=== PATIENT | male | born 1950 | race Caucasian/White ===

== ENCOUNTER 2019-09-21 13:14 | Emergency (ER) | payer OTHER ==
--- NOTE | 2019-09-21 13:21 | EDM.PDOC ---
ED HPI GENERAL MEDICAL PROBLEM - General Chief Complaint: General Stated Complaint: Nosebleed Time Seen by Provider: 09/21/19 13:15 Source of Information: Reports: Patient, Old Records ([facility] EMR. No paper hospital chart available.) History Limitations: Reports: No Limitations - History of Present Illness INITIAL COMMENTS - FREE TEXT/NARRATIVE: Patient was brought to the emergency room via private automobile by a friend for evaluation of a three-day history of intermittent bilateral epistaxis, right greater than left. He denies any recent injury with symptoms refractory to nasal pressure and packing at home. Patient did have a similar episode on . He woke up this morning at about 8 AM with significant right-sided epistaxis at that time. The patient also denies any recent fever, wheezing, dyspnea, etc., however stable chronic nonproductive cough secondary to his COPD and tobacco use. No recent history of abdominal pain, heartburn, nausea, diarrhea, melena, gross hematochezia, or any food intolerance, including fatty foods, etc.. The patient denies any chest pain/pressure, heart flutter, dizziness, orthostasis, orthopnea, diaphoresis, paresthesias, recent decreased exercise tolerance, or any other anginal-type symptoms. No history of recent headaches, visual changes, diplopia, change in mental status, or other change in neurological status. He denies any specific pain or discomfort. Onset: Gradual, Other (As above) Onset Date: 09/21/19 Onset Time: 08:00 Duration: Getting Worse, Intermittent Location: Reports: Other (No pain but epistaxis as above) Quality: Reports: Same as Previous Episode Severity: Moderate Improves with: Reports: None Worsens with: Reports: None Context: Reports: Other (As above). Denies: Sick Contact, Trauma Associated Symptoms: Reports: Cough (Stable chronic). Denies: Confusion, Chest Pain, cough w sputum, Diaphoresis, Fever/Chills, Headaches, Loss of Appetite, Malaise, Nausea/Vomiting, Seizure, Shortness of Breath, Syncope, Weakness Treatments ANCILLARY SERVICES MANAGER: Reports: Other (see below) (None) - Related Data Allergies Allergy/AdvReac Type Severity Reaction Status Date / Time No Known Allergies Allergy Verified 09/21/19 13:21 Home Meds: Home Meds Cholecalciferol (Vitamin D3) [Vitamin D3] 0 mcg PO DAILY 09/21/19 [History] Gabapentin [Neurontin] 1,200 mg PO TID 09/21/19 [History] Potassium Chloride 20 meq PO TID 09/21/19 [History] Vitamin B Complex [B Complex] 1 each PO DAILY 09/21/19 [History] amLODIPine [Norvasc] 0 mg PO DAILY 09/21/19 [History] hydroCHLOROthiazide [Hydrochlorothiazide] 0 tab PO DAILY 09/21/19 [History] Past Medical History HEENT History: Reports: Impaired Vision, Other (See Below). Denies: Allergic Rhinitis, Hard of Hearing Other HEENT History: Patient wears glasses. Cardiovascular History: Reports: Hypertension. Denies: Aneurysm, Arrhythmia, Blood Clots/VTE/DVT, CAD, Heart Murmur, High Cholesterol, OR Respiratory History: Reports: Bronchitis, Recurrent, COPD. Denies: PE, Pneumonia, Recurrent, Sleep Apnea Gastrointestinal History: Reports: None Musculoskeletal History: Reports: Arthritis, Osteoarthritis Neurological History: Reports: Neuropathy, Peripheral Psychiatric History: Reports: Addiction, Other (See Below) Other Psychiatric History: Tobacco and alcohol use as below. Endocrine/Metabolic History: Reports: None. Denies: Diabetes, Type I, Diabetes , Type II, Hypothyroidism, IDDM - Past Surgical History HEENT Surgical History: Reports: Oral Surgery, Other (See Below) Other HEENT Surgeries/Procedures: Complete teeth extraction - Past Imaging History Past Imaging History: Reports: MRI (Left elbow on 01/20/14.) Social & Family History - Tobacco Use Smoking Status *Q: Heavy Tobacco Smoker Tobacco Use Within Last Twelve Months: Cigarettes Years of Tobacco use: 59 Packs/Tins Daily: 2 Used Tobacco, but Quit: No Smoking Cessation Information Provided To Patient: Yes Second Hand Smoke Exposure: Yes Source of Second Hand Smoke Exposure: smokes Second Hand Smoke Education Provided: Yes - Alcohol Use Alcohol Use History: Yes Number of Drinks Per Day Comment: He admits to previous alcohol abuse history, however he denies any recent use, which is contrary to history obtained from the friend that brought him to the emergency room today. 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 ED EXAM, ENT - Physical Exam Exam: See Below Exam Limited By: No Limitations General Appearance: Alert, WD/WN, No Apparent Distress Eye Exam: Bilateral Eye: EOMI, Normal Inspection (No nystagmus ), PERRL Ears: Normal External Exam, Normal Canal, Normal TMs, Hearing Loss (Borderline bilateral presbycusis) Nose: Active Bleeding (Minimal active bleeding from and hypervascularity in the distal medial septal region bilaterally right greater than left), Dried Blood, Injected Turbinates (Mild). No: Nasal Tenderness, Foreign Body, Septal Hematoma , Septal Perforation Mouth/Throat: Normal Gums, Normal Lips, Normal Oropharynx. No: Normal Teeth ( Complete absent dentition with no dentures today) Head: Atraumatic, Normocephalic. No: Facial Tenderness, Sinus Tenderness Neck: Normal Inspection, Supple, Non-Tender, Full Range of Motion. No: Lymphadenopathy (L), Lymphadenopathy (R), Thyromegaly Respiratory/Chest: No Respiratory Distress, Lungs Clear, Normal Breath Sounds, No Accessory Muscle Use, Chest Non-Tender. No: Pleural Rub, Retractions Cardiovascular: Normal Peripheral Pulses, Regular Rate, Rhythm, No Edema, No Gallop, No JVD, No Murmur, No Rub. No: Gallop/S3, Gallop/S4, Friction Rub GI/Abdominal: Normal Bowel Sounds, Soft, Non-Tender, No Organomegaly, No Distention, No Abnormal Bruit, No Mass. No: Guarding (Male) Exam: Deferred Rectal (Males) Exam: Deferred Back: Normal Inspection, Full Range of Motion. No: CVA Tenderness (L), CVA Tenderness (R), Muscle Spasm Extremities: Normal Inspection, Normal Range of Motion, Non-Tender, No Pedal Edema, Normal Capillary Refill. No: Junaid's Sign Neurological: Alert, Oriented, CN II-XII Intact, Normal Cognition, Normal Gait, No Motor/Sensory Deficits Psychiatric: Normal Affect, Normal Mood Skin: Warm, Dry, Intact, Normal Color, No Rash. No: Diaphoretic, Wound/Incision Lymphatic: No Adenopathy Comments: Mild generalized cachexia ED ENT PROCEDURES - Epistaxis Procedure Indication: Epistaxis, Uncontrolled Recent anticoagulants/antiplatlets: Yes (Aspirin) Uncontrolled HTN: No Recent septal/nasal surgery: No Site of bleeding: Right Nare, Left Nare, Anterior Clearing of clots: Patient Blew Nose Topical Meds: Phenylephrine (Bilateral) Ice pack to area: Yes Chemical cautery: Silver Nitrate Topical (2 sticks each bilaterally) Anterior Packing: Plain Gauze Strip (1/2 inch) Local anesthesia - Lidocaine (Xylocaine): Other (None) Complications: No Course - Vital Signs Last Recorded V/S: Last Vital Signs Temp 37.2 C 09/21/19 13:58 Pulse 100 09/21/19 13:58 Resp 20 09/21/19 13:58 BP 152/77 H 09/21/19 13:58 Pulse Ox 99 09/21/19 13:58 Vital Signs - 24 hr 09/21/19 13:58 Temperature [ 37.2 C Temporal] Pulse, 100 Peripheral [ Left Brachial] Respiratory 20 Rate Blood Pressure 152/77 H [Left Upper Arm ] O2 Sat by Pulse 99 Oximetry - Orders/Labs/Meds Orders: Active Orders 24 hr Category Date Time Status Obtain Past Medical Record [OM.PC] Routine Oth 09/21/19 13:19 Active Labs: Laboratory Tests 09/21/19 09/21/19 09/21/19 Range/Units 13:25 13:25 13:25 WBC 9.3 (4.0-10.2) K/uL RBC 4.44 (4.33-5.41) M/uL Hgb 14.6 (13.1-16.8) g/dL Hct 41.0 (39.0-49.0) % MCV 92.3 (84.0-98.0) fL MCH 32.9 (28.2-33.3) pg MCHC 35.6 (31.7-36.0) g/dL RDW 11.8 (11.2-14.1) % Plt Count 226 (150-350) K/uL Neut % (Auto) 77.4 (45.0-80.0) % Lymph % (Auto) 13.0 (10.0-50.0) % Hardin % (Auto) 9.2 (2.0-14.0) % Eos % (Auto) 0.1 (0.0-5.0) % Baso % (Auto) 0.3 (0.0-2.0) % Neut # (Auto) 7.21 H (1.40-7.00) K/uL Lymph # (Auto) 1.21 (0.50-3.50) K/uL Hardin # (Auto) 0.86 (0.00-1.00) K/uL Eos # (Auto) 0.01 (0.00-0.50) K/uL Baso # (Auto) 0.03 (0.00-0.20) K/uL PT 10.6 (9.5-12.0) SEC INR 1.0 APTT 28.1 (21.0-31.3) SEC Sodium 133 L (136-145) mmol/L Potassium 4.6 (3.5-5.1) mmol/L Chloride 98 (98-107) mmol/L Carbon Dioxide 26.1 (21.0-32.0) mmol/L BUN 11 (7-18) mg/dL Creatinine 0.72 (0.51-1.17) mg/dL Est Cr Clr Drug Dosing TNP Estimated GFR (MDRD) > 60 mL/min Glucose 160 H (74-106) mg/dL Calcium 9.0 (8.5-10.1) mg/dL Total Bilirubin 0.8 (0.2-1.0) mg/dL AST 39 H (15-37) U/L ALT 26 (12-78) U/L Alkaline Phosphatase 124 H (46-116) IU/L Total Protein 7.1 (6.4-8.2) g/dL Albumin 3.0 L (3.4-5.0) g/dL Meds: Medications Discontinued Medications Generic Name Dose Route Start Last Admin Trade Name Freq PRN Reason Stop Dose Admin Phenylephrine HCl 1 ml 09/21/19 13:21 09/21/19 13:57 Carlos Alberto-Synephrine 0.5% Regular Nasal [place] NASBOTH 09/21/19 13:22 Not Given ONETIME ONE Phenylephrine HCl 1 ml 09/21/19 13:26 09/21/19 13:45 Carlos Alberto-Synephrine 0.5% Regular Nasal [place] NASBOTH 09/21/19 13:27 1 spray ONETIME ONE Administration Departure - Departure Time of Disposition: 14:35 Disposition: Home, Self-Care 01 Condition: Good Clinical Impression: Epistaxis, Tobacco abuse counseling, Hyponatremia, Hypoalbuminemia, Elevated LFTs, Hypomagnesemia, Hypertension COPD (chronic obstructive pulmonary disease) Qualifiers: COPD type: emphysema Emphysema type: panlobular Qualified Code(s): J43.1 - Panlobular emphysema - Discharge Information *PRESCRIPTION DRUG MONITORING PROGRAM REVIEWED*: Not Applicable *COPY OF PRESCRIPTION DRUG MONITORING REPORT IN PATIENT DENIS: Not Applicable Instructions: Nosebleed, [id number], Health Risks of Smoking, Steps to Quit Smoking, [id number] Forms: ED Department Discharge Additional Instructions: 1. Followup with your regular provider in 2 days as directed for reevaluation and removal of nasal packs as discussed. Bring these discharge instructions with you to that visit. 2. Discontinue all aspirin use until otherwise directed by your regular providers at the [facility]. Recommend repeat CBC, comprehensive metabolic panel, and magnesium level at time of follow-up in that office. 3. Avoid all NSAIDs including ibuprofen, Aleve, etc. 4. Pinch your nose and ice packs to the back of the neck, if nosebleeds recurs 5. Stop all tobacco use PAOLA as directed/per provided information and consider contacting Quit LIne, etc.. 6. Immediately after this visit verify that your cellular telephone's voicemail has been activated and is empty. Also verify that your home telephone 's answering machine is operating properly and has space to receive messages. Note that it is sometimes necessary for us to be able to contact you at a later date to discuss your medical care. 7. Please remember that we are ALWAYS here for you and want to answer any questions you may have. Feel free to call the hospital any time and we call you back PAOLA. Sepsis Event Note - Focused Exam Vital Signs: Vital Signs Temp Pulse Resp BP Pulse Ox 09/21/19 13:58 37.2 C 100 20 152/77 H 99 Date Exam was Performed: 09/21/19 Time Exam was Performed: 14:13 - Problem List & Annotations (1) Epistaxis SNOMED Code(s): 665990683 Code(s): R04.0 - EPISTAXIS Status: Acute Priority: High Onset Date: ~ Annotation/Comment:: Note successful cauterization with silver nitrate sticks as above. Bilateral nasal packing as above. Patient cautioned to discontinue his aspirin with no direct clinical indication for chronic aspirin use at this time secondary to recent changed guidelines. Patient apparently does not have any known heart disease, etc.. (2) Elevated LFTs SNOMED Code(s): 145368358, 184682570 Code(s): R94.5 - ABNORMAL RESULTS OF LIVER FUNCTION STUDIES Status: Acute Priority: Medium Onset Date: 09/21/19 Annotation/Comment:: Note alcohol abuse history as above. INR and PTT are normal today. Continue to observe closely by his regular providers as per discharge instructions. No evidence of intoxication by clinical exam today. (3) COPD (chronic obstructive pulmonary disease) SNOMED Code(s): 86214684 Code(s): J44.9 - CHRONIC OBSTRUCTIVE PULMONARY DISEASE, UNSPECIFIED Status : Chronic Priority: Medium Annotation/Comment:: No recent fever or bronchitic type symptoms. He apparently does have an inhaler at home, which he rarely uses. Qualifiers: COPD type: emphysema Emphysema type: panlobular Qualified Code(s): J43.1 - Panlobular emphysema (4) Hypoalbuminemia SNOMED Code(s): 662128052 Code(s): E88.09 - [facility] DISORDERS OF PLASMA-PROTEIN METABOLISM, NEC Status: Chronic Priority: Medium Annotation/Comment:: Observe closely by his regular providers. Note some cachexia possibly secondary to his tobacco and alcohol use. (5) Hypomagnesemia SNOMED Code(s): 672635770 Code(s): E83.42 - HYPOMAGNESEMIA Status: Chronic Priority: Medium Annotation/Comment:: Observe for now. Consider magnesium oxide supplementation pending follow-up blood work results by his regular providers as per discharge instructions (6) Hyponatremia SNOMED Code(s): 60749727 Code(s): E87.1 - HYPO-OSMOLALITY AND HYPONATREMIA Status: Acute Priority : Medium Onset Date: 09/21/19 Annotation/Comment:: Mild likely secondary to his diuretic. Observe for now. No direct evidence of CHF by clinical exam. (7) Tobacco abuse counseling SNOMED Code(s): 434585267, 067374536, 127554677 Code(s): Z71.6 - TOBACCO ABUSE COUNSELING Status: Chronic Priority: Medium Annotation/Comment:: Tobacco cessation strongly encouraged with information provided at discharge. (8) Hypertension SNOMED Code(s): 94633237 Code(s): I10 - ESSENTIAL (PRIMARY) HYPERTENSION Status: Chronic Priority : Medium Annotation/Comment:: Blood pressure somewhat elevated in the emergency room. Observe for now with continued close observation his regular providers. Qualifiers: Hypertension type: essential hypertension Qualified Code(s): I10 - Essential (primary) hypertension - Problem List Review Problem List Initiated/Reviewed/Updated: Yes - My Orders Last 24 Hours: My Active Orders 09/21/19 13:19 Obtain Past Medical Record [OM.PC] Routine - Assessment/Plan Last 24 Hours: My Active Orders 09/21/19 13:19 Obtain Past Medical Record [OM.PC] Routine Assessment:: As above Plan: As above. Extensive precautions were given to the patient, who is in agreement with the treatment plan. See Patient Instructions for further treatment and plan.
[2019-09-21] MEDS: Phenylephrine 0.5% Nasal Spray 15 ML Bot NASBOTH ONE ×2 (13:45→13:57)
[2019-09-21 13:49] LABS: CHLORIDE,CL 98 mmol/L (98-107); SODIUM,NA 133 mmol/L (136-145)
[2019-09-21 13:59] VITALS: BP 152/77; PULSE 100
== END 2019-09-21 14:37 | disposition home or self-care (01) ==
LOC: LL.ED 13:14
DX: R04.0 Epistaxis (principal); J43.1 Panlobular emphysema; R79.89 Other specified abnormal findings of blood chemistry; E87.1 Hypo-osmolality and hyponatremia; E88.09 Other disorders of plasma-protein metabolism, not elsewhere classified; I10 Essential (primary) hypertension; E83.42 Hypomagnesemia; F17.210 Nicotine dependence, cigarettes, uncomplicated; Z71.6 Tobacco abuse counseling; M19.90 Unspecified osteoarthritis, unspecified site; Z79.899 Other long term (current) drug therapy
CPT/HCPCS: 30901; 36415; 80053; 85025; 85610; 85730; 99282; 99283-25; A9270-GY

== ENCOUNTER 2019-09-22 08:48 | Emergency (ER) | payer MEDICARE, OTHER ==
[2019-09-22] MEDS ORDERED: Sodium Chloride 0.9% 10 ML Syringe FLUSH PRN (09:14)
--- NOTE | 2019-09-22 09:14 | EDM.PDOC ---
ED HPI GENERAL MEDICAL PROBLEM - General Chief Complaint: ENT Problem Stated Complaint: nose bleed Time Seen by Provider: 09/22/19 09:10 Source of Information: Reports: Patient, Old Records ([facility] chart/EMR), Other ([facility] EMR) History Limitations: Reports: No Limitations - History of Present Illness INITIAL COMMENTS - FREE TEXT/NARRATIVE: The patient was brought to the emergency room via private automobile by his friend for evaluation of refractory bilateral epistaxis, which started on , however moderate mostly right-sided epistaxis since about 8 AM on 09/21. The patient was evaluated by me in this emergency room yesterday afternoon with bilateral nasal packing and anterior bilateral silver nitrate cauterization, however no evidence of posterior epistaxis at that time. His nasal packing did become somewhat loose during the night with return of moderate bleeding, including clot formation from his mouth with no history of reinjury, etc. No recent use of NSAIDs with patient not taking his aspirin this morning as directed yesterday. The patient also denies any recent fever, wheezing, dyspnea , etc., although stable chronic nonproductive cough secondary to his COPD and tobacco use. No recent history of abdominal pain, heartburn, nausea, diarrhea, hematochezia, or any food intolerance, including fatty foods, etc. although dark stool this morning secondary to swallowed blood. The patient denies any chest pain/pressure, heart flutter, orthostasis, orthopnea, diaphoresis, paresthesias, recent decreased exercise tolerance, or any other anginal-type symptoms, although some mild dizziness this morning. Onset Date: 09/21/19 Onset Time: 08:00 Duration: Constant, Getting Worse, Other (No pain) Quality: Reports: Same as Previous Episode Improves with: Reports: None Worsens with: Reports: None Context: Reports: Other (As above). Denies: Sick Contact, Trauma Associated Symptoms: Reports: Cough (Stable chronic). Denies: Confusion, Chest Pain, cough w sputum, Diaphoresis, Fever/Chills, Headaches, Loss of Appetite, Malaise, Nausea/Vomiting, Seizure, Shortness of Breath, Syncope, Weakness Treatments SILK FINISHER: Reports: Other (see below) Other Treatments SILK FINISHER: nasal packing intact yesterday as above but bleeding around it. - Related Data Allergies Allergy/AdvReac Type Severity Reaction Status Date / Time No Known Allergies Allergy Verified 09/21/19 13:21 Home Meds: Home Meds Gabapentin [Neurontin] 1,200 mg PO TID 09/21/19 [History] Potassium Chloride 20 meq PO TID 09/21/19 [History] Vitamin B Complex [B Complex] 1 each PO DAILY 09/21/19 [History] amLODIPine [Norvasc] 5 mg PO DAILY 09/21/19 [History] hydroCHLOROthiazide [Hydrochlorothiazide] 1 tab PO DAILY 09/21/19 [History] Albuterol [Ventolin HFA] 2 puff .XX Q4H PRN 09/22/19 [History] Budesonide/Formoterol Fumarate [Symbicort 80-4.5 MCG] 2 puff IH BID 09/22/19 [ History] Cholecalciferol (Vitamin D3) [Vitamin D3] 1,000 unit PO DAILY 09/22/19 [History] Magnesium Oxide 400 mg PO DAILY #30 tab 09/22/19 [Rx] Tiotropium [Spiriva HandiHaler] 18 mcg .XX DAILY 09/22/19 [History] Past Medical History HEENT History: Reports: Impaired Vision, Other (See Below). Denies: Allergic Rhinitis Other HEENT History: Patient wears glasses. Cardiovascular History: Reports: Arrhythmia, High Cholesterol, Hypertension, Syncope, Other (See Below). Denies: CAD, NV Other Cardiovascular History: PACs with couplets and triplets, PVCs with couplets and triplets, first-degree AV block, Mobitz 1 second-degree AV block, with syncopal episode and possible moderate bradycardia secondary to previous labetalol therapy in April 2019. Grade 1 Diastolic dysfunction by echocardiogram Respiratory History: Reports: Bronchitis, Recurrent, COPD, Sleep Apnea, Other ( See Below) Other Respiratory History: Patient is still being evaluated for probable sleep apnea with no current CPAP therapy Gastrointestinal History: Reports: Colon Polyp, Fatty Liver, Other (See Below) Other Gastrointestinal History: Recurrent colonic polyps including tubular adenoma of the transverse colon in 2003 with tubular adenoma at 20 cm in 2007 with multiple recurrent hyperplastic colonic polyps including the hepatic flexure and sigmoid region. Fatty liver and benign hepatic cysts. Genitourinary History: Reports: BPH Musculoskeletal History: Reports: Arthritis, Back Pain, Chronic, Neck Pain, Chronic, Osteoarthritis, Other (See Below) Other Musculoskeletal History: Left rotator cuff tear in 2012. Area of mild scoliosis. Neurological History: Reports: Neuropathy, Peripheral, Other (See Below) Other Neuro History: Recurrent falls secondary to his peripheral neuropathy? Alcohol abuse? Psychiatric History: Reports: Addiction, Anxiety, Depression, Other (See Below) Other Psychiatric History: Tobacco and alcohol use as below. Endocrine/Metabolic History: Reports: Other (See Below) Other Endocrine/Metabolic History: Hyperglycemia currently diet-controlled. Hematologic History: Reports: Other (See Below) Other Hematologic History: Thrombocytopenia of unknown etiology. - Past Surgical History HEENT Surgical History: Reports: Oral Surgery, Other (See Below) Other HEENT Surgeries/Procedures: Complete teeth extraction GI Surgical History: Reports: Colonoscopy, Polypectomy, Other (See Below) Other GI Surgeries/Procedures: Colonoscopy on 12/19/07 and 07/19/04. - Past Imaging History Past Imaging History: Reports: Cardiac Echo (07/08/19 with ejection fraction of 6065 percent and findings as above.), Event Monitor (Three-week event monitor through the [facility] on 05/07/19 with Holter monitor study apparently done at [facility] in [place] July 2019 with results not available.), Holter Monitor (As above in July 2019.), MRI (Left elbow on . Left shoulder on 04/08/13), PFT (05/09/13), Ultrasound (Abdominal ultrasound on 07/05/04.) Social & Family History - Family History Oncologic: Reports: Colon, Other (See Below) Other Oncologic Family History: Brother with colon cancer at age 53. - Tobacco Use Smoking Status *Q: Heavy Tobacco Smoker Tobacco Use Within Last Twelve Months: Cigarettes Years of Tobacco use: 59 Packs/Tins Daily: 2 (Started smoking at age 10) Used Tobacco, but Quit: No Smoking Cessation Information Provided To Patient: Yes Second Hand Smoke Exposure: Yes Source of Second Hand Smoke Exposure: smokes Second Hand Smoke Education Provided: Yes - Alcohol Use Alcohol Use History: Yes Number of Drinks Per Day Comment: He admits to previous alcohol abuse, however he denies any recent use, which is contrary to history obtained from his friend who brought him to the emergency room on 09/21. 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 ED EXAM, ENT - Physical Exam Exam: See Below Exam Limited By: No Limitations General Appearance: Alert, WD/WN, No Apparent Distress, Other (Mild generalized cachexia likely secondary to his COPD and/or previous alcohol abuse) Eye Exam: Bilateral Eye: EOMI, Normal Inspection (No nystagmus), PERRL Ears: Normal External Exam, Normal Canal, Hearing Grossly Normal, Normal TMs Nose: Active Bleeding, Dried Blood, Other (Anterior bilateral septal vascularity well-controlled with mild cauterization sites noted from previous silver nitrate treatments yesterday as above. No active anterior bleeding. Posterior nasal bleeding site could not be observed with some blood in the hypopharynx noted). No: Nasal Swelling, Nasal Tenderness, Foreign Body, Septal Hematoma, Septal Perforation Mouth/Throat: Normal Gums, Normal Lips. No: Normal Oropharynx (Posterior bleeding noted in the hypopharynx as above), Normal Teeth (Complete absent dentition) Head: Atraumatic, Normocephalic. No: Facial Tenderness, Sinus Tenderness Neck: Normal Inspection, Supple, Non-Tender, Full Range of Motion. No: Lymphadenopathy (L), Lymphadenopathy (R), Thyromegaly Respiratory/Chest: No Respiratory Distress, Lungs Clear, Normal Breath Sounds, No Accessory Muscle Use, Chest Non-Tender. No: Pleural Rub, Retractions Cardiovascular: Normal Peripheral Pulses, No Edema, No Gallop, No JVD, No Murmur , No Rub, Tachycardia (Regular rhythm). No: Diastolic Murmur, Gallop/S3, Gallop /S4, Friction Rub GI/Abdominal: Normal Bowel Sounds, Soft, Non-Tender, No Organomegaly, No Distention, No Abnormal Bruit, No Mass. No: Guarding (Male) Exam: Deferred Rectal (Males) Exam: Deferred Back: Normal Inspection, Full Range of Motion. No: CVA Tenderness (L), CVA Tenderness (R), Muscle Spasm Extremities: Normal Inspection, Normal Range of Motion, Non-Tender, No Pedal Edema, Normal Capillary Refill. No: Junaid's Sign Neurological: Alert, Oriented, CN II-XII Intact, Normal Cognition, Normal Gait, No Motor/Sensory Deficits Psychiatric: Normal Affect, Normal Mood Skin: Warm, Dry, Intact, Normal Color, No Rash. No: Diaphoretic, Wound/Incision Lymphatic: No Adenopathy Course - Vital Signs Last Recorded V/S: Last Vital Signs Temp 36.8 C 09/22/19 08:49 Pulse 98 09/22/19 12:45 Resp 14 09/22/19 12:45 BP 130/75 09/22/19 12:45 Pulse Ox 100 09/22/19 12:45 Vital Signs - 24 hr 09/22/19 09/22/19 09/22/19 08:49 09:10 09:40 Temperature [ 36.8 C Temporal] Pulse, 112 H 116 H 112 H Peripheral [ Pulse Oximetry] Respiratory 16 18 16 Rate Blood Pressure 145/81 H 151/78 H 152/84 H [Left Arm] O2 Sat by Pulse 100 100 100 Oximetry 09/22/19 09/22/19 09/22/19 10:30 12:15 12:45 Temperature [ Temporal] Pulse, 104 H 115 H 98 Peripheral [ Pulse Oximetry] Respiratory 16 14 14 Rate Blood Pressure 148/82 H 153/84 H 130/75 [Left Arm] O2 Sat by Pulse 100 100 100 Oximetry - Orders/Labs/Meds Orders: Active Orders 24 hr Category Date Time Status Cardiac Monitoring [RC] . DIRECTED Care 09/22/19 09:16 Active Peripheral IV Care [RC] . DIRECTED Care 09/22/19 09:16 Active Sodium Chloride 0.9% [Saline Flush] Med 09/22/19 09:14 Active 10 ml FLUSH ASDIRECTED PRN Obtain Past Medical Record [OM.PC] Routine Oth 09/22/19 09:15 Active Peripheral IV Insertion Adult [OM.PC] Routine Oth 09/22/19 09:15 Ordered Medication Orders Sodium Chloride (Saline Flush) 10 ml FLUSH ASDIRECTED PRN PRN Reason: Keep Vein Open Labs: Laboratory Tests 09/22/19 09/22/19 09/22/19 Range/Units 09:05 09:05 09:15 WBC 9.8 (4.0-10.2) K/uL RBC 3.77 L (4.33-5.41) M/uL Hgb 12.5 L D (13.1-16.8) g/dL Hct 35.6 L (39.0-49.0) % MCV 94.4 (84.0-98.0) fL MCH 33.2 (28.2-33.3) pg MCHC 35.1 (31.7-36.0) g/dL RDW 12.0 (11.2-14.1) % Plt Count 222 (150-350) K/uL Neut % (Auto) 71.2 (45.0-80.0) % Lymph % (Auto) 18.4 (10.0-50.0) % [place] % (Auto) 10.0 (2.0-14.0) % Eos % (Auto) 0.2 (0.0-5.0) % Baso % (Auto) 0.2 (0.0-2.0) % Neut # (Auto) 6.95 (1.40-7.00) K/uL Lymph # (Auto) 1.80 (0.50-3.50) K/uL [place] # (Auto) 0.98 (0.00-1.00) K/uL Eos # (Auto) 0.02 (0.00-0.50) K/uL Baso # (Auto) 0.02 (0.00-0.20) K/uL PT 11.4 (9.5-12.0) SEC INR 1.1 APTT 28.5 (21.0-31.3) SEC Magnesium 1.6 L (1.8-2.4) mg/dL Ethyl Alcohol (0.000-0.080) g/dL 09/22/19 Range/Units 09:15 WBC (4.0-10.2) K/uL RBC (4.33-5.41) M/uL Hgb (13.1-16.8) g/dL Hct (39.0-49.0) % MCV (84.0-98.0) fL MCH (28.2-33.3) pg MCHC (31.7-36.0) g/dL RDW (11.2-14.1) % Plt Count (150-350) K/uL Neut % (Auto) (45.0-80.0) % Lymph % (Auto) (10.0-50.0) % [place] % (Auto) (2.0-14.0) % Eos % (Auto) (0.0-5.0) % Baso % (Auto) (0.0-2.0) % Neut # (Auto) (1.40-7.00) K/uL Lymph # (Auto) (0.50-3.50) K/uL [place] # (Auto) (0.00-1.00) K/uL Eos # (Auto) (0.00-0.50) K/uL Baso # (Auto) (0.00-0.20) K/uL PT (9.5-12.0) SEC INR APTT (21.0-31.3) SEC Magnesium (1.8-2.4) mg/dL Ethyl Alcohol 0.000 (0.000-0.080) g/dL Meds: Medications Generic Name Dose Route Start Last Admin Trade Name Freq PRN Reason Stop Dose Admin Sodium Chloride 10 ml 09/22/19 09:14 Saline Flush FLUSH ASDIRECTED PRN Keep Vein Open Discontinued Medications Generic Name Dose Route Start Last Admin Trade Name Freq PRN Reason Stop Dose Admin Lactated Ringer's 1,000 mls @ 999 mls/hr 09/22/19 09:47 09/22/19 09:55 Ringers, Lactated IV 09/22/19 10:47 999 mls/hr .BOLUS ONE Administration Magnesium Oxide 800 mg 09/22/19 09:48 09/22/19 10:50 Magnesium Oxide PO 09/22/19 09:49 800 mg ONETIME ONE Administration - Radiology Interpretation Free Text/Narrative:: 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 Normal sinus rhythm in the 90s to low 100s prior to discharge after IV fluids. Departure - Departure Time of Disposition: 13:30 Disposition: Home, Self-Care 01 Condition: Good Clinical Impression: Epistaxis, Tobacco abuse counseling, Hypomagnesemia, Hyponatremia, Hypoalbuminemia, Elevated LFTs COPD (chronic obstructive pulmonary disease) Qualifiers: COPD type: emphysema Emphysema type: panlobular Qualified Code(s): J43.1 - Panlobular emphysema Hypertension Qualifiers: Hypertension type: essential hypertension Qualified Code(s): I10 - Essential ( primary) hypertension Arrhythmia Qualifiers: Premature depolarization type: other Sleep apnea Qualifiers: Sleep apnea type: unspecified type Qualified Code(s): G47.30 - Sleep apnea, unspecified - Discharge Information *PRESCRIPTION DRUG MONITORING PROGRAM REVIEWED*: Not Applicable *COPY OF PRESCRIPTION DRUG MONITORING REPORT IN PATIENT DENIS: Not Applicable Prescriptions: Magnesium Oxide 400 mg PO DAILY #30 tab Referrals: PCP,Unknown [Primary Care Provider] - Forms: ED Department Discharge Additional Instructions: 1. Follow-up with the ENT at the [facility], [address] [place] [address] at 12:30 p.m. tomorrow afternoon as scheduled. Telephone number [phone]. Note possible nasolaryngoscopy and posterior nasal cauterization at that time as discussed. 2. Tylenol 650 mg by mouth every 4 hours when necessary as directed. 3. Continue strict avoidance of all NSAIDs including daily aspirin, ibuprofen, Aleve, etc. once again as discussed. 4. Discuss possible discontinuation of your daily aspirin on a permanent basis with your regular providers at the [facility] in [place] secondary to recently changed guidelines concerning aspirin preventative therapy. 5. Recommend repeat CBC, comprehensive metabolic panel, and magnesium level in 2 weeks by your regular [facility] providers as above. 6. Stop all tobacco use PAOLA as directed/per provided information and consider contacting Quit LIne, etc.. 7. Continue to observe your blood pressures closely through your regular providers. 8. Leave Mcadams catheter and nasal packing in place until otherwise directed by your ENT as above. 9. Nasal compression and ice packs to the posterior neck as needed if mild nose bleeding recurs. 10. Immediately after this visit verify that your cellular telephone's voicemail has been activated and is empty. Also verify that your home telephone 's answering machine is operating properly and has space to receive messages. Note that it is sometimes necessary for us to be able to contact you at a later date to discuss your medical care. 11. Please remember that we are ALWAYS here for you and want to answer any questions you may have. Feel free to call the hospital any time and we call you back PAOLA. 12. Also mention to Dr. Hager, ENT, at time of the above follow-up visit your current evaluation for possible future CPAP treatment. This may affect her further treatment and evaluation at time of your visit tomorrow. 13. Bring these discharge instructions with you to your follow-up with your regular providers and ENT. Sepsis Event Note - Evaluation Sepsis Screening Result: No Definite Risk - Focused Exam Vital Signs: Vital Signs Temp Pulse Resp BP Pulse Ox 09/22/19 12:45 98 14 130/75 100 09/22/19 12:15 115 H 14 153/84 H 100 09/22/19 10:30 104 H 16 148/82 H 100 09/22/19 09:40 112 H 16 152/84 H 100 09/22/19 09:10 116 H 18 151/78 H 100 09/22/19 08:49 36.8 C 112 H 16 145/81 H 100 Date Exam was Performed: 09/22/19 Time Exam was Performed: 15:17 - Problem List & Annotations (1) Epistaxis SNOMED Code(s): 425025348 Code(s): R04.0 - EPISTAXIS Status: Acute Priority: High Current Visit: No Onset Date: ~09/21/19 Annotation/Comment:: Refractory right-sided posterior nasal epistaxis with excellent control with Mcadams catheter placement as above. Note successful cauterization with silver nitrate sticks bilaterally in the emergency room on 09/21 with only minimal persistent vascularity noted in the right septal region today. Repeat cauterization with silver nitrate in this area was initially successful, however note returned epistaxis thereafter. Surgicel applied with repeat bilateral anterior nasal packing with Surgicel left in place in the right naris. Note that the Mcadams catheter did need to be adjusted in the emergency room with patient observed for an extended period of time to verify effective treatment. Initial telephone consultation with the [facility] in [place] at 10:50 a.m. with referral to the ENT department, however they did not answer their telephone. Subsequent telephone consultation at 11:[address] Hager, ENT on-call at the [facility], who does agree to evaluate the patient in her office tomorrow as per discharge instructions. ER records from today and yesterday will be faxed to her office, fax number . Note that the patient is being evaluated for possible future CPAP therapy, which should be considered by Dr. Hager at time of her evaluation as above. Patient was once again cautioned to discontinue his aspirin until otherwise directed by his loaders with no direct clinical indication for chronic aspirin use at this time secondary to recent changed guidelines. Patient apparently does not have any known heart disease, etc. other than arrhythmia as below/above. Patient was also once again advised to discontinue all NSAID use. Note that 1 L lactated Ringer's IV bolus was given in the emergency room with resolution of patient's dizziness and no clinical orthostasis, etc. at time of discharge. (2) Elevated LFTs SNOMED Code(s): 537126517, 383309055 Code(s): R94.5 - ABNORMAL RESULTS OF LIVER FUNCTION STUDIES Status: Acute Priority: Medium Current Visit: No Onset Date: 09/21/19 Annotation/ Comment:: Note alcohol abuse history as above. INR and PTT are normal today and yesterday. Continue to observe closely by his regular providers as per discharge instructions. No evidence of intoxication by clinical exam 09/21 with normal alcohol level today. Note history of fatty liver. (3) Hyponatremia SNOMED Code(s): 47853852 Code(s): E87.1 - HYPO-OSMOLALITY AND HYPONATREMIA Status: Acute Priority : Medium Current Visit: No Onset Date: 09/21/19 Annotation/Comment:: Mild likely secondary to his diuretic. Observe for now. No direct evidence of CHF by clinical exam. (4) COPD (chronic obstructive pulmonary disease) SNOMED Code(s): 26449192 Code(s): J44.9 - CHRONIC OBSTRUCTIVE PULMONARY DISEASE, UNSPECIFIED Status : Chronic Priority: Medium Current Visit: No Annotation/Comment:: No recent fever or bronchitic type symptoms. He apparently does have an inhaler at home, which he rarely uses. Qualifiers: COPD type: emphysema Emphysema type: panlobular Qualified Code(s): J43.1 - Panlobular emphysema (5) Hypertension SNOMED Code(s): 31728651 Code(s): I10 - ESSENTIAL (PRIMARY) HYPERTENSION Status: Chronic Priority : Medium Current Visit: No Annotation/Comment:: Blood pressure somewhat elevated in the emergency room. Observe for now with continued close observation his regular providers. Qualifiers: Hypertension type: essential hypertension Qualified Code(s): I10 - Essential (primary) hypertension (6) Hypoalbuminemia SNOMED Code(s): 113062082 Code(s): E88.09 - [facility] DISORDERS OF PLASMA-PROTEIN METABOLISM, NEC Status: Chronic Priority: Medium Current Visit: No Onset Date: 09/21/19 Annotation/Comment:: Observe closely by his regular providers. Note some cachexia possibly secondary to his COPD and/or tobacco and alcohol use. (7) Hypomagnesemia SNOMED Code(s): 094377963 Code(s): E83.42 - HYPOMAGNESEMIA Status: Chronic Priority: Medium Current Visit: No Annotation/Comment:: Magnesium oxide given in the emergency room. Continue magnesium oxide supplementation with close follow-up by his regular providers as per discharge instructions (8) Tobacco abuse counseling SNOMED Code(s): 247832526, 271534428, 190658116 Code(s): Z71.6 - TOBACCO ABUSE COUNSELING Status: Chronic Priority: Medium Current Visit: No Annotation/Comment:: Tobacco cessation was once again strongly encouraged with information provided at discharge from this facility on 09/21. (9) Arrhythmia SNOMED Code(s): 569870792 Code(s): I49.9 - CARDIAC ARRHYTHMIA, UNSPECIFIED Status: Acute Priority: Medium Current Visit: Yes Annotation/Comment:: History of syncope and significant arrhythmia, including PACs, PVCs, first-degree, and second-degree AV block as above with current cardiology evaluation by the cardiology department at [facility] with last appointment in July 2019. Only very occasional PVCs noted by telemetry today with mild sinus tachycardia as above. Note previous bradycardia and significant pauses secondary to previous labetalol therapy. Qualifiers: Premature depolarization type: other (10) Sleep apnea SNOMED Code(s): 84376020 Code(s): G47.30 - SLEEP APNEA, UNSPECIFIED Status: Chronic Priority: Medium Current Visit: Yes Annotation/Comment:: Currently being evaluated by his regular providers with no CPAP therapy to this point. The status of planned sleep study unknown at this time. Qualifiers: Sleep apnea type: unspecified type Qualified Code(s): G47.30 - Sleep apnea , unspecified - Problem List Review Problem List Initiated/Reviewed/Updated: Yes - My Orders Last 24 Hours: My Active Orders 09/22/19 09:14 Sodium Chloride 0.9% [Saline Flush] 10 ml FLUSH ASDIRECTED PRN 09/22/19 09:15 Obtain Past Medical Record [OM.PC] Routine Peripheral IV Insertion Adult [OM.PC] Routine 09/22/19 09:16 Cardiac Monitoring [RC] . DIRECTED Peripheral IV Care [RC] . DIRECTED - Assessment/Plan Last 24 Hours: My Active Orders 09/22/19 09:14 Sodium Chloride 0.9% [Saline Flush] 10 ml FLUSH ASDIRECTED PRN 09/22/19 09:15 Obtain Past Medical Record [OM.PC] Routine Peripheral IV Insertion Adult [OM.PC] Routine 09/22/19 09:16 Cardiac Monitoring [RC] . DIRECTED Peripheral IV Care [RC] . DIRECTED Assessment:: As above. Plan: As above. Extensive precautions were given to the patient, who is in agreement with the treatment plan. See Patient Instructions for further treatment and plan.
[2019-09-22] MEDS: Lactated Ringers 1,000 ML IV ONE (09:55)
[2019-09-22] MEDS: Magnesium Oxide 400 MG Tab PO ONE (10:50)
== END 2019-09-22 13:30 | disposition home or self-care (01) ==
LOC: LL.ED 08:48
DX: R04.0 Epistaxis (principal); I49.8 Other specified cardiac arrhythmias; J43.1 Panlobular emphysema; E83.42 Hypomagnesemia; E87.1 Hypo-osmolality and hyponatremia; E88.09 Other disorders of plasma-protein metabolism, not elsewhere classified; R79.89 Other specified abnormal findings of blood chemistry; G47.30 Sleep apnea, unspecified; I10 Essential (primary) hypertension; E78.00 Pure hypercholesterolemia, unspecified; M19.90 Unspecified osteoarthritis, unspecified site; F41.9 Anxiety disorder, unspecified; F32.9 Major depressive disorder, single episode, unspecified; F17.210 Nicotine dependence, cigarettes, uncomplicated; Z71.6 Tobacco abuse counseling; Z79.899 Other long term (current) drug therapy
CPT/HCPCS: 36415; 83735; 85025; 85610; 85730; 96360; 99283-25; A9270-GY; G0480; J7120

== ENCOUNTER 2020-12-10 19:32 | Emergency (ER) | payer OTHER ==
--- NOTE | 2020-12-10 20:06 | EDM.PDOC ---
ED HPI GENERAL MEDICAL PROBLEM - General Chief Complaint: General Stated Complaint: fall Time Seen by Provider: 12/10/20 19:54 Source of Information: Reports: Patient, EMS History Limitations: Reports: No Limitations - History of Present Illness INITIAL COMMENTS - FREE TEXT/NARRATIVE: Patient sent to ER from his home via EMS due to weakness. Has needed help to get up three times today per . Has had several hot flashes and noted low grade temp of 99.5. Has had weakness issues in past that said was related to electrolyte imbalance. Patient says that he feels he has had progressive decline in strength over the months too. No other acute changes per patient. - Related Data Allergies Allergy/AdvReac Type Severity Reaction Status Date / Time No Known Allergies Allergy Verified 12/10/20 21:33 Home Meds: Home Meds Gabapentin [Neurontin] 1,200 mg PO TID 09/21/19 [History] Potassium Chloride 20 meq PO TID 09/21/19 [History] Vitamin B Complex [B Complex] 1 each PO DAILY 09/21/19 [History] amLODIPine [Norvasc] 5 mg PO DAILY 09/21/19 [History] hydroCHLOROthiazide [Hydrochlorothiazide] 1 tab PO DAILY 09/21/19 [History] Albuterol [Ventolin HFA] 2 puff .XX Q4H PRN 09/22/19 [History] Budesonide/Formoterol Fumarate [Symbicort 80-4.5 MCG] 2 puff IH BID 09/22/19 [History] Cholecalciferol (Vitamin D3) [Vitamin D3] 1,000 unit PO DAILY 09/22/19 [History] Tiotropium [Spiriva HandiHaler] 18 mcg .XX DAILY 09/22/19 [History] Furosemide [Lasix] 0.5 tab PO DAILY 12/10/20 [History] Past Medical History HEENT History: Reports: Impaired Vision, Other (See Below). Denies: Allergic Rhinitis Other HEENT History: Patient wears glasses. Cardiovascular History: Reports: Arrhythmia, High Cholesterol, Hypertension, Syncope, Other (See Below). Denies: CAD, [place] Other Cardiovascular History: PACs with couplets and triplets, PVCs with couplets and triplets, first-degree AV block, Mobitz 1 second-degree AV block, with syncopal episode and possible moderate bradycardia secondary to previous labetalol therapy in April 2019. Grade 1 Diastolic dysfunction by echocardiogram Respiratory History: Reports: Bronchitis, Recurrent, COPD, Sleep Apnea, Other (See Below) Other Respiratory History: Patient is still being evaluated for probable sleep apnea with no current CPAP therapy Gastrointestinal History: Reports: Colon Polyp, Fatty Liver, Other (See Below) Other Gastrointestinal History: Recurrent colonic polyps including tubular adenoma of the transverse colon in 2003 with tubular adenoma at 20 cm in 2007 with multiple recurrent hyperplastic colonic polyps including the hepatic flexure and sigmoid region. Fatty liver and benign hepatic cysts. Genitourinary History: Reports: BPH Musculoskeletal History: Reports: Arthritis, Back Pain, Chronic, Neck Pain, Chronic, Osteoarthritis, Other (See Below) Other Musculoskeletal History: Left rotator cuff tear in 2012. Area of mild scoliosis. Neurological History: Reports: Neuropathy, Peripheral, Other (See Below) Other Neuro History: Recurrent falls secondary to his peripheral neuropathy? Alcohol abuse? Psychiatric History: Reports: Addiction, Anxiety, Depression, Other (See Below) Other Psychiatric History: Tobacco and alcohol use as below. Endocrine/Metabolic History: Reports: Other (See Below) Other Endocrine/Metabolic History: Hyperglycemia currently diet-controlled. Hematologic History: Reports: Other (See Below) Other Hematologic History: Thrombocytopenia of unknown etiology. - Past Surgical History HEENT Surgical History: Reports: Oral Surgery, Other (See Below) Other HEENT Surgeries/Procedures: Complete teeth extraction GI Surgical History: Reports: Colonoscopy, Polypectomy, Other (See Below) Other GI Surgeries/Procedures: Colonoscopy on 12/19/07 and 07/19/04. - Past Imaging History Past Imaging History: Reports: Cardiac Echo (07/08/19 with ejection fraction of 6065 percent and findings as above.), Event Monitor (Three-week event monitor through the [facility] on 05/07/19 with Holter monitor study apparently done at [facility] July 2019 with results not available.), Holter Monitor (As above in July 2019.), MRI (Left elbow on 01/20/14. Left shoulder on 04/08/13), PFT (05/09/13), Ultrasound (Abdominal ultrasound on 07/05/04.) Social & Family History - Family History Oncologic: Reports: Colon, Other (See Below) Other Oncologic Family History: Brother with colon cancer at age 53. 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 Denies: Night Sweats, Diaphoresis, Weight Loss HEENT: Denies: Ear Pain, Eye Discharge, Rhinitis, Sinus Problem, Throat Pain, Throat Swelling, Vertigo, Vision Change Respiratory: Denies: Shortness of Breath, Pleuritic Chest Pain, Cough, Sputum, Hemoptysis Cardiovascular: Denies: Chest Pain, Dyspnea on Exertion, Edema, Lightheadedness, Orthopnea, Palpitations, PND, Syncope GI/Abdominal: Reports: Diarrhea (chronic per patient. Takes imodium daily for this. ), Decreased Appetite. Denies: Abdominal Pain, Constipation, Difficulty Swallowing, Hematochezia, Nausea, Vomiting : Reports: No Symptoms Musculoskeletal: Reports: Other (no acute changes from baseline) Skin: Reports: Other (no acute changes) Neurological: Reports: Numbness (chronic numbness below thighs and both hands. ), Weakness (global). Denies: Trouble Speaking, Change in Speech Psychiatric: Reports: No Symptoms Hematologic/Lymphatic: Reports: No Symptoms ED EXAM, GENERAL - Physical Exam Exam: See Below Exam Limited By: No Limitations General Appearance: Alert, No Apparent Distress Eye Exam: Bilateral Eye: EOMI, PERRL Ears: Hearing Grossly Normal Nose: No: Nasal Deformity, Nasal Swelling, Nasal Drainage Throat/Mouth: Normal Lips, Normal Voice, No Airway Compromise Head: Atraumatic, Normocephalic Neck: Supple Respiratory/Chest: No Respiratory Distress, Lungs Clear, Normal Breath Sounds, No Accessory Muscle Use, Chest Non-Tender Cardiovascular: No Edema, No Murmur, Tachycardia GI/Abdominal: Normal Bowel Sounds, Soft, Non-Tender, No Distention (Male) Exam: Deferred Rectal (Males) Exam: Deferred Back Exam: No: CVA Tenderness (L), CVA Tenderness (R), Muscle Spasm, Paraspinal Tenderness, Vertebral Tenderness Extremities: Non-Tender, No Pedal Edema, Normal Capillary Refill, Other (equal tone/strength bilat) Neurological: Alert, Oriented Psychiatric: Normal Affect, Normal Mood Skin Exam: Warm, Dry, Intact #1 Interpretation EKG Date: 12/10/20 Time: 20:19 Rhythm: Other (sinus tach) Rate (Beats/Min): 109 [place]: Normal P-Wave: Present QRS: Normal ST-T: Other (no obvious ischemia noted on EKG) QT: Normal Comparison: NA - No Prior EKG Course - Vital Signs Last Recorded V/S: Last Vital Signs Temp 37.4 C 12/10/20 22:00 Pulse 97 12/10/20 22:00 Resp 19 12/10/20 22:00 BP 104/53 L 12/10/20 22:00 Pulse Ox 98 12/10/20 22:00 - Orders/Labs/Meds Orders: Active Orders 24 hr Category Date Time Status EKG Documentation Completion [RC] ASDIRECTED Care 12/10/20 19:55 Active Peripheral IV Care [RC] . DIRECTED Care 12/10/20 21:31 Active PE Chest [Ang Chest] [CT] Stat Exams 12/10/20 21:17 Ordered CORONAVIRUS COVID-19 DANDY [MOLEC] Routine Lab 12/10/20 21:05 Received CORONAVIRUS COVID-19 DANDY [MOLEC] Stat Lab 12/10/20 20:06 Ordered CULTURE BLOOD [BC] Stat Lab 12/10/20 20:59 Ordered CULTURE URINE [RM] Stat Lab 12/10/20 19:45 Received Sodium Chloride 0.9% [Normal Saline] 1,000 ml Med 12/10/20 21:30 Active IV .BOLUS Sodium Chloride 0.9% [Saline Flush] Med 12/10/20 21:31 Active 10 ml FLUSH ASDIRECTED PRN Sodium Chloride 3% 500 ml Med 12/10/20 20:49 Active IV ASDIRECTED Blood Culture x2 Reflex Set [OM.PC] Stat Oth 12/10/20 20:58 Ordered Peripheral IV Insertion Adult [OM.PC] Routine Oth 12/10/20 21:31 Ordered Medication Orders Sodium Chloride (Sodium Chloride 3%) 500 mls @ 30 mls/hr IV ASDIRECTED KEN Last Admin: 12/10/20 21:10 Dose: 30 mls/hr Documented by: [email or web address] Sodium Chloride (Normal Saline) 1,000 mls @ 500 mls/hr IV .BOLUS KEN Sodium Chloride (Sodium Chloride 0.9% 10 Ml Syringe) 10 ml FLUSH ASDIRECTED PRN PRN Reason: Keep Vein Open Last Admin: 12/10/20 22:27 Dose: 10 ml Documented by: Labs: Laboratory Tests 12/10/20 12/10/20 12/10/20 Range/Units 19:45 19:55 19:55 WBC 15.2 H (4.0-10.2) K/uL RBC 4.34 (4.33-5.41) M/uL Hgb 14.9 D (13.1-16.8) g/dL Hct 40.2 (39.0-49.0) % MCV 92.6 (84.0-98.0) fL MCH 34.3 H (28.2-33.3) pg MCHC 37.1 H (31.7-36.0) g/dL RDW 12.0 (11.2-14.1) % Plt Count 159 (150-350) K/uL Neut % (Auto) 93.8 H (45.0-80.0) % Lymph % (Auto) 1.9 L (10.0-50.0) % [place] % (Auto) 4.2 (2.0-14.0) % Eos % (Auto) 0.0 (0.0-5.0) % Baso % (Auto) 0.1 (0.0-2.0) % Neut # (Auto) 14.21 H (1.40-7.00) K/uL Lymph # (Auto) 0.29 L (0.50-3.50) K/uL [place] # (Auto) 0.64 (0.00-1.00) K/uL Eos # (Auto) 0.00 (0.00-0.50) K/uL Baso # (Auto) 0.01 (0.00-0.20) K/uL D-Dimer, Quantitative (0-400) ng/mL Sodium 121 L* D (136-145) mmol/L Potassium 3.1 L D (3.5-5.1) mmol/L Chloride 84 L D (98-107) mmol/L Carbon Dioxide 26.8 (21.0-32.0) mmol/L BUN 12 (7-18) mg/dL Creatinine 0.98 (0.51-1.17) mg/dL Est Cr Clr Drug Dosing TNP Estimated GFR (MDRD) > 60 mL/min Glucose 101 H (70-99) mg/dL Hemoglobin A1c (4.3-5.7) % Lactic Acid (0.4-2.0) mmol/L Calcium 9.4 (8.5-10.1) mg/dL Magnesium 2.0 (1.8-2.4) mg/dL Total Bilirubin 1.4 H (0.2-1.0) mg/dL AST 30 (15-37) U/L ALT 27 (12-78) U/L Alkaline Phosphatase 95 (46-116) IU/L Troponin I (0.000-0.056) ng/mL NT-Pro-B Natriuret Pep (0-125) pg/mL Total Protein 7.3 (6.4-8.2) g/dL Albumin 3.6 (3.4-5.0) g/dL Specimen Type Urinvoid Urine Color Yellow Urine Appearance Slightly cloudy Urine pH 7.0 (5.0-9.0) Ur Specific [place] 1.015 (1.005-1.030) Urine Protein Negative (NEGATIVE) mg/dL Urine Glucose (UA) Negative (NEGATIVE) mg/dL Urine Ketones Negative (NEGATIVE) mg/dL Urine Occult Blood Trace-intact H (NEGATIVE) Urine Nitrite Negative (NEGATIVE) Urine Bilirubin Negative (NEGATIVE) Urine Urobilinogen 0.2 (0.2-1.0) E.U./dL Ur Leukocyte Esterase Moderate H (NEGATIVE) Urine RBC 0-5 /HPF Urine WBC 75-100 H /HPF Ur Epithelial Cells Few /LPF Urine Bacteria Many H (NONE TO FEW) /HPF Urine Mucus Rare H (NEGATIVE) /LPF SARS-CoV-2 Ag (Rapid) (NEGATIVE) 12/10/20 12/10/20 12/10/20 Range/Units 19:55 19:55 19:55 WBC (4.0-10.2) K/uL RBC (4.33-5.41) M/uL Hgb (13.1-16.8) g/dL Hct (39.0-49.0) % MCV (84.0-98.0) fL MCH (28.2-33.3) pg MCHC (31.7-36.0) g/dL RDW (11.2-14.1) % Plt Count (150-350) K/uL Neut % (Auto) (45.0-80.0) % Lymph % (Auto) (10.0-50.0) % [place] % (Auto) (2.0-14.0) % Eos % (Auto) (0.0-5.0) % Baso % (Auto) (0.0-2.0) % Neut # (Auto) (1.40-7.00) K/uL Lymph # (Auto) (0.50-3.50) K/uL [place] # (Auto) (0.00-1.00) K/uL Eos # (Auto) (0.00-0.50) K/uL Baso # (Auto) (0.00-0.20) K/uL D-Dimer, Quantitative 2210 H (0-400) ng/mL Sodium (136-145) mmol/L Potassium (3.5-5.1) mmol/L Chloride (98-107) mmol/L Carbon Dioxide (21.0-32.0) mmol/L BUN (7-18) mg/dL Creatinine (0.51-1.17) mg/dL Est Cr Clr Drug Dosing Estimated GFR (MDRD) mL/min Glucose (70-99) mg/dL Hemoglobin A1c (4.3-5.7) % Lactic Acid 3.3 H (0.4-2.0) mmol/L Calcium (8.5-10.1) mg/dL Magnesium (1.8-2.4) mg/dL Total Bilirubin (0.2-1.0) mg/dL AST (15-37) U/L ALT (12-78) U/L Alkaline Phosphatase (46-116) IU/L Troponin I 0.149 H* (0.000-0.056) ng/mL NT-Pro-B Natriuret Pep (0-125) pg/mL Total Protein (6.4-8.2) g/dL Albumin (3.4-5.0) g/dL Specimen Type Urine Color Urine Appearance Urine pH (5.0-9.0) Ur Specific [place] (1.005-1.030) Urine Protein (NEGATIVE) mg/dL Urine Glucose (UA) (NEGATIVE) mg/dL Urine Ketones (NEGATIVE) mg/dL Urine Occult Blood (NEGATIVE) Urine Nitrite (NEGATIVE) Urine Bilirubin (NEGATIVE) Urine Urobilinogen (0.2-1.0) E.U./dL Ur Leukocyte Esterase (NEGATIVE) Urine RBC /HPF Urine WBC /HPF Ur Epithelial Cells /LPF Urine Bacteria (NONE TO FEW) /HPF Urine Mucus (NEGATIVE) /LPF SARS-CoV-2 Ag (Rapid) (NEGATIVE) 12/10/20 12/10/20 12/10/20 Range/Units 19:55 19:55 21:05 WBC (4.0-10.2) K/uL RBC (4.33-5.41) M/uL Hgb (13.1-16.8) g/dL Hct (39.0-49.0) % MCV (84.0-98.0) fL MCH (28.2-33.3) pg MCHC (31.7-36.0) g/dL RDW (11.2-14.1) % Plt Count (150-350) K/uL Neut % (Auto) (45.0-80.0) % Lymph % (Auto) (10.0-50.0) % [place] % (Auto) (2.0-14.0) % Eos % (Auto) (0.0-5.0) % Baso % (Auto) (0.0-2.0) % Neut # (Auto) (1.40-7.00) K/uL Lymph # (Auto) (0.50-3.50) K/uL [place] # (Auto) (0.00-1.00) K/uL Eos # (Auto) (0.00-0.50) K/uL Baso # (Auto) (0.00-0.20) K/uL D-Dimer, Quantitative (0-400) ng/mL Sodium (136-145) mmol/L Potassium (3.5-5.1) mmol/L Chloride (98-107) mmol/L Carbon Dioxide (21.0-32.0) mmol/L BUN (7-18) mg/dL Creatinine (0.51-1.17) mg/dL Est Cr Clr Drug Dosing Estimated GFR (MDRD) mL/min Glucose (70-99) mg/dL Hemoglobin A1c 5.3 (4.3-5.7) % Lactic Acid (0.4-2.0) mmol/L Calcium (8.5-10.1) mg/dL Magnesium (1.8-2.4) mg/dL Total Bilirubin (0.2-1.0) mg/dL AST (15-37) U/L ALT (12-78) U/L Alkaline Phosphatase (46-116) IU/L Troponin I (0.000-0.056) ng/mL NT-Pro-B Natriuret Pep 299 H (0-125) pg/mL Total Protein (6.4-8.2) g/dL Albumin (3.4-5.0) g/dL Specimen Type Urine Color Urine Appearance Urine pH (5.0-9.0) Ur Specific [place] (1.005-1.030) Urine Protein (NEGATIVE) mg/dL Urine Glucose (UA) (NEGATIVE) mg/dL Urine Ketones (NEGATIVE) mg/dL Urine Occult Blood (NEGATIVE) Urine Nitrite (NEGATIVE) Urine Bilirubin (NEGATIVE) Urine Urobilinogen (0.2-1.0) E.U./dL Ur Leukocyte Esterase (NEGATIVE) Urine RBC /HPF Urine WBC /HPF Ur Epithelial Cells /LPF Urine Bacteria (NONE TO FEW) /HPF Urine Mucus (NEGATIVE) /LPF SARS-CoV-2 Ag (Rapid) Negative (NEGATIVE) Meds: Medications Generic Name Dose Route Start Last Admin Trade Name Freq PRN Reason Stop Dose Admin Sodium Chloride 500 mls @ 30 mls/hr 12/10/20 20:49 12/10/20 21:10 Sodium Chloride 3% IV 30 mls/hr ASDIRECTED KEN Administration Sodium Chloride 1,000 mls @ 500 mls/hr 12/10/20 21:30 Normal Saline IV .BOLUS KEN Sodium Chloride 10 ml 12/10/20 21:31 12/10/20 22:27 Sodium Chloride 0.9% 10 Ml Syringe FLUSH 10 ml ASDIRECTED PRN Administration Keep Vein Open Discontinued Medications Generic Name Dose Route Start Last Admin Trade Name Freq PRN Reason Stop Dose Admin Acetaminophen 650 mg 12/10/20 20:40 12/10/20 21:11 Acetaminophen 325 Mg Tab PO 12/10/20 20:41 650 mg NOW ONE Administration Ceftriaxone Sodium 1 gm/ 100 mls @ 200 mls/hr 12/10/20 20:35 12/10/20 21:11 Sodium Chloride IV 12/10/20 21:04 200 mls/hr ONETIME ONE Administration Sodium Chloride 500 mls @ 500 mls/hr 12/10/20 20:45 Normal Saline IV .BOLUS KEN Iopamidol 100 ml 12/10/20 21:40 12/10/20 22:09 Iopamidol 755 Mg/Ml 100 Ml Bottle IVPUSH 12/10/20 21:41 100 ml ONETIME STA Administration Iopamidol Confirm 12/10/20 21:44 Iopamidol 612 Mg/Ml 100 Ml Bottle Administered 12/10/20 21:45 Dose 100 ml .ROUTE .STK-MED ONE Potassium Chloride 20 meq 12/10/20 21:11 12/10/20 21:21 Potassium Chloride 10 Meq Tab.Er PO 12/10/20 21:12 20 meq ONETIME ONE Administration - Re-Assessments/Exams Free Text/Narrative Re-Assessment/Exam: 12/10/20 20:13 No specific focal findings on exam. Tachy. Low grade fever. Vague history with only weakness and several hot flashes being reported by patient. Because of this a variety of labs were ordered in addition to EKG. Patient noted to have hyponatremia/UTI/hypokalemia and increase in WBC, Troponin, and DDimer. Patient denied chest pain/anginal symptoms, SOB, respiratory difficulties. No history of previous [place] or PE. Rocephin, NS bolus, and hypertonic saline ordered. Call placed to [place] in [place] and patient transfer declined by due to pt's elevated Troponin. Call placed to [place] in [place] and patient accepted by /Hospitalist. Waiting for bed confirmation at this time. Will have patient undergo CT of chest to formally rule out PE prior to transfer. Screen for Covid also ordered. Pending blood and urine culture. 12/10/20 21:48 ProBNP minimally increased. Covid negative. Departure - Departure Time of Disposition: 22:40 Disposition: DC/Tfer to [facility] 02 Condition: Good Clinical Impression: Hyponatremia, UTI, Urinary tract infectious disease, Hypokalemia, Elevated troponin, Elevated d-dimer - Discharge Information Forms: ED Department Discharge Sepsis Event Note (ED) - Evaluation Sepsis Screening Result: Possible Sepsis Risk - Focused Exam Vital Signs: Vital Signs Temp Pulse Resp BP Pulse Ox 12/10/20 22:00 37.4 C 97 19 104/53 L 98 12/10/20 21:10 108 H 20 123/73 98 12/10/20 20:40 112 H 17 117/57 L 97 12/10/20 20:10 38.1 C 110 H 22 H 118/64 95 12/10/20 19:55 114 H 20 107/58 L 97 12/10/20 19:41 37.8 C 118 H 18 108/62 100 - My Orders Last 24 Hours: My Active Orders 12/10/20 19:45 CULTURE URINE [RM] Stat 12/10/20 19:55 EKG Documentation Completion [RC] ASDIRECTED 12/10/20 20:06 CORONAVIRUS COVID-19 DANDY [MOLEC] Stat 12/10/20 20:49 Sodium Chloride 3% 500 ml IV ASDIRECTED 12/10/20 20:58 Blood Culture x2 Reflex Set [OM.PC] Stat 12/10/20 20:59 CULTURE BLOOD [BC] Stat 12/10/20 21:05 CORONAVIRUS COVID-19 DANDY [MOLEC] Routine 12/10/20 21:17 PE Chest [Ang Chest] [CT] Stat 12/10/20 21:30 Sodium Chloride 0.9% [Normal Saline] 1,000 ml IV .BOLUS 12/10/20 21:31 Peripheral IV Care [RC] . DIRECTED Sodium Chloride 0.9% [Saline Flush] 10 ml FLUSH ASDIRECTED PRN Peripheral IV Insertion Adult [OM.PC] Routine - Assessment/Plan Last 24 Hours: My Active Orders 12/10/20 19:45 CULTURE URINE [RM] Stat 12/10/20 19:55 EKG Documentation Completion [RC] ASDIRECTED 12/10/20 20:06 CORONAVIRUS COVID-19 DANDY [MOLEC] Stat 12/10/20 20:49 Sodium Chloride 3% 500 ml IV ASDIRECTED 12/10/20 20:58 Blood Culture x2 Reflex Set [OM.PC] Stat 12/10/20 20:59 CULTURE BLOOD [BC] Stat 12/10/20 21:05 CORONAVIRUS COVID-19 DANDY [MOLEC] Routine 12/10/20 21:17 PE Chest [Ang Chest] [CT] Stat 12/10/20 21:30 Sodium Chloride 0.9% [Normal Saline] 1,000 ml IV .BOLUS 12/10/20 21:31 Peripheral IV Care [RC] . DIRECTED Sodium Chloride 0.9% [Saline Flush] 10 ml FLUSH ASDIRECTED PRN Peripheral IV Insertion Adult [OM.PC] Routine
[2020-12-10 20:22] LABS: HEMOGLOBIN A1C 5.3 % (4.3-5.7)
[2020-12-10 20:28] LABS: CHLORIDE,CL 84 mmol/L (98-107)
[2020-12-10] MEDS ORDERED: cefTRIAXone 1 GM in Sodium Chloride 0.9% 100 ML IV ONE (20:35)
[2020-12-10] MEDS ORDERED: Acetaminophen 325 MG Tab PO ONE (20:40)
[2020-12-10 20:42] LABS: SODIUM,NA 121 mmol/L (136-145)
[2020-12-10] MEDS ORDERED: Sodium Chloride 0.9% 500 ML IV SCH (20:45)
[2020-12-10] MEDS ORDERED: Sodium Chloride 3% 500 ML IV SCH (20:49)
[2020-12-10] MEDS ORDERED: Potassium Chloride 10 MEQ Tab.ER PO ONE (21:11)
[2020-12-10] MEDS ORDERED: Sodium Chloride 0.9% 1,000 ML IV SCH (21:30)
[2020-12-10] MEDS ORDERED: Iopamidol 755 Mg/ML 100 ML Bottle IVPUSH STA (21:40)
[2020-12-10] MEDS ORDERED: Iopamidol 612 MG/ML 100 ML Bottle ONE (21:44)
[2020-12-10] MEDS: Sodium Chloride 0.9% 10 ML Syringe FLUSH PRN ×2 (22:26→22:27)
== END 2020-12-10 22:45 ==
LOC: LL.ED 19:32
DX: E87.1 Hypo-osmolality and hyponatremia (principal); E87.6 Hypokalemia; N39.0 Urinary tract infection, site not specified; R79.89 Other specified abnormal findings of blood chemistry; R79.1 Abnormal coagulation profile; R00.0 Tachycardia, unspecified; I10 Essential (primary) hypertension; J44.9 Chronic obstructive pulmonary disease, unspecified; Z72.0 Tobacco use; Z79.899 Other long term (current) drug therapy; Z20.822 Contact with and (suspected) exposure to COVID-19
CPT/HCPCS: 36415; 71275; 80053; 81001; 83036; 83605; 83735; 83880; 84484; 85025; 85379; 87040; 87077; 87086; 87088; 87186; 87426; 93005; 93010; 96365; 99284; 99285-25; A9270-GY; J0696; J7131; Q9967; U0002

== ENCOUNTER 2021-04-06 21:30 | Emergency (ER) | payer OTHER ==
--- NOTE | 2021-04-06 22:27 | EDM.PDOC ---
ED HPI GENERAL MEDICAL PROBLEM - General Chief Complaint: Gastrointestinal Problem Stated Complaint: somthing stuck in throat Time Seen by Provider: 04/06/21 21:39 Source of Information: Reports: Patient History Limitations: Reports: No Limitations - History of Present Illness INITIAL COMMENTS - FREE TEXT/NARRATIVE: Patient comes to ER with sensation food being stuck in throat. Had issue yesterday with pork chop dinner and it took almost an hour before he coughed up the pork chop. Tonight had some hamburger and potato salad and again food got stuck. Discomfort near lower sternum. Unable to drink water as it comes right back up and he spits it out. He coughed out small piece of hamburger during interview but still unable to swallow water. Denies formal history of GERD/ heartburn. Reports that this is a new problem. No other GI changes. No SOB. No other acute change in ROS. Throat Pain Score (Numeric/FACES): 10 Upper Abdomen Pain Score (Numeric/FACES): 8 - Related Data Allergies Allergy/AdvReac Type Severity Reaction Status Date / Time No Known Allergies Allergy Verified 04/06/21 21:41 Home Meds: Home Meds Gabapentin [Neurontin] 1,200 mg PO TID 09/21/19 [History] Potassium Chloride 20 meq PO TID 09/21/19 [History] Vitamin B Complex [B Complex] 1 each PO DAILY 09/21/19 [History] Albuterol [Ventolin HFA] 2 puff .XX Q4H PRN 09/22/19 [History] Budesonide/Formoterol Fumarate [Symbicort 80-4.5 MCG] 2 puff IH BID 09/22/19 [History] Cholecalciferol (Vitamin D3) [Vitamin D3] 1,000 unit PO DAILY 09/22/19 [History] Tiotropium [Spiriva HandiHaler] 18 mcg .XX DAILY 09/22/19 [History] Furosemide [Lasix] 0.5 tab PO DAILY 12/10/20 [History] Past Medical History HEENT History: Reports: Impaired Vision, Other (See Below) Other HEENT History: Patient wears glasses. Cardiovascular History: Reports: Arrhythmia, High Cholesterol, Hypertension, Syncope, Other (See Below) Other Cardiovascular History: PACs with couplets and triplets, PVCs with couplets and triplets, first-degree AV block, Mobitz 1 second-degree AV block, with syncopal episode and possible moderate bradycardia secondary to previous labetalol therapy in April 2019. Grade 1 Diastolic dysfunction by echocardiogram Respiratory History: Reports: Bronchitis, Recurrent, COPD, Sleep Apnea, Other (See Below) Gastrointestinal History: Reports: Colon Polyp, Fatty Liver, Other (See Below) Other Gastrointestinal History: Recurrent colonic polyps including tubular adenoma of the transverse colon in 2003 with tubular adenoma at 20 cm in 2007 with multiple recurrent hyperplastic colonic polyps including the hepatic flexure and sigmoid region. Fatty liver and benign hepatic cysts. Genitourinary History: Reports: BPH Musculoskeletal History: Reports: Arthritis, Back Pain, Chronic, Neck Pain, Chronic, Osteoarthritis, Other (See Below) Other Musculoskeletal History: Left rotator cuff tear in 2012. Area of mild scoliosis. Neurological History: Reports: Neuropathy, Peripheral, Other (See Below) Other Neuro History: Recurrent falls secondary to his peripheral neuropathy? Alcohol abuse? Psychiatric History: Reports: Addiction, Anxiety, Depression, Other (See Below) Other Psychiatric History: Tobacco and alcohol use as below. Endocrine/Metabolic History: Reports: Other (See Below) Other Endocrine/Metabolic History: Hyperglycemia currently diet-controlled. Hematologic History: Reports: Other (See Below) Other Hematologic History: Thrombocytopenia of unknown etiology. - Infectious Disease History Infectious Disease History: Reports: Chicken Pox, Measles, Mumps, Rubella - Past Surgical History HEENT Surgical History: Reports: Oral Surgery, Other (See Below) Other HEENT Surgeries/Procedures: Complete teeth extraction GI Surgical History: Reports: Colonoscopy, Polypectomy, Other (See Below) Other GI Surgeries/Procedures: Colonoscopy on 12/19/07 and 07/19/04. Musculoskeletal Surgical History: Reports: Carpal Tunnel Other Musculoskeletal Surgeries/Procedures:: January Right carpal tunnel release. March Left carpal tunnel release - Past Imaging History Past Imaging History: Reports: Cardiac Echo (07/08/19 with ejection fraction of 6065 percent and findings as above.), Event Monitor (Three-week event monitor through the [facility] in [place] on 05/07/19 with Holter monitor study apparently done at [facility] in [place] July 2019 with results not available.), Holter Monitor (As above in July 2019.), MRI (Left elbow on 01/20/14. Left shoulder on 04/08/13), PFT (05/09/13), Ultrasound (Abdominal ultrasound on 07/05/04.) Social & Family History - Family History Oncologic: Reports: Colon, Other (See Below) Other Oncologic Family History: Brother with colon cancer at age 53. 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 Denies: Distension, Nausea : Reports: No Symptoms Musculoskeletal: Reports: Other (no acute changes from baseline) Skin: Reports: No Symptoms Neurological: Reports: No Symptoms Psychiatric: Reports: No Symptoms ED EXAM, GENERAL - Physical Exam Exam: See Below Exam Limited By: No Limitations General Appearance: Alert, No Apparent Distress, Other (spitting into emesis bag) Eye Exam: Bilateral Eye: EOMI, PERRL Ears: Hearing Grossly Normal Nose: No: Nasal Deformity, Nasal Swelling, Nasal Drainage Throat/Mouth: Normal Lips, Normal Voice, No Airway Compromise Head: Atraumatic, Normocephalic Neck: Supple Respiratory/Chest: No Respiratory Distress, Lungs Clear, Normal Breath Sounds, No Accessory Muscle Use Cardiovascular: Regular Rate, Rhythm, No Edema, No Murmur GI/Abdominal: Soft, Non-Tender, No Distention (Male) Exam: Deferred Rectal (Males) Exam: Deferred Back Exam: No: Muscle Spasm Extremities: Normal Capillary Refill, Other (no focal acute changes) Neurological: Alert, Oriented, Normal Cognition, Normal Gait, No Motor/Sensory Deficits Psychiatric: Normal Affect, Normal Mood Skin Exam: Warm, Dry, Intact, Normal Color Course - Vital Signs Last Recorded V/S: Last Vital Signs Temp 36.9 C 04/06/21 23:08 Pulse 96 04/06/21 23:08 Resp 20 04/06/21 21:34 BP 164/89 H 04/06/21 23:08 Pulse Ox 98 04/06/21 21:34 - Orders/Labs/Meds Orders: Active Orders 24 hr Category Date Time Status Peripheral IV Care [RC] . DIRECTED Care 04/06/21 22:35 Active Abdomen Series w Chest 1V [CR] Stat Exams 04/06/21 21:39 Taken Sodium Chloride 0.9% [Saline Flush] Med 04/06/21 22:35 Active 10 ml FLUSH ASDIRECTED PRN Peripheral IV Insertion Adult [OM.PC] Routine Oth 04/06/21 22:35 Ordered Medication Orders Sodium Chloride (Sodium Chloride 0.9% 10 Ml Syringe) 10 ml FLUSH ASDIRECTED PRN PRN Reason: Keep Vein Open Last Admin: 04/06/21 22:50 Dose: 10 ml Documented by: MARIJA Labs: Laboratory Tests 04/06/21 04/06/21 Range/Units 22:25 22:25 WBC 13.3 H (4.0-10.2) K/uL RBC 5.11 (4.33-5.41) M/uL Hgb 16.7 D (13.1-16.8) g/dL Hct 47.1 (39.0-49.0) % MCV 92.2 (84.0-98.0) fL MCH 32.7 (28.2-33.3) pg MCHC 35.5 (31.7-36.0) g/dL RDW 13.6 (11.2-14.1) % Plt Count 267 D (150-350) K/uL Neut % (Auto) 70.3 (45.0-80.0) % Lymph % (Auto) 22.5 (10.0-50.0) % [place] % (Auto) 5.2 (2.0-14.0) % Eos % (Auto) 1.7 (0.0-5.0) % Baso % (Auto) 0.3 (0.0-2.0) % Neut # (Auto) 9.31 H (1.40-7.00) K/uL Lymph # (Auto) 2.99 (0.50-3.50) K/uL [place]ens # (Auto) 0.69 (0.00-1.00) K/uL Eos # (Auto) 0.23 (0.00-0.50) K/uL Baso # (Auto) 0.04 (0.00-0.20) K/uL Sodium 141 D (136-145) mmol/L Potassium 3.8 (3.5-5.1) mmol/L Chloride 103 D (98-107) mmol/L Carbon Dioxide 25.5 (21.0-32.0) mmol/L BUN 13 (7-18) mg/dL Creatinine 0.84 (0.51-1.17) mg/dL Est Cr Clr Drug Dosing 87.15 mL/min Estimated GFR (MDRD) > 60 mL/min Glucose 104 H (70-99) mg/dL Calcium 9.2 (8.5-10.1) mg/dL Total Bilirubin 0.4 (0.2-1.0) mg/dL AST 23 (15-37) U/L ALT 25 (12-78) U/L Alkaline Phosphatase 89 (46-116) IU/L Total Protein 8.2 (6.4-8.2) g/dL Albumin 4.0 (3.4-5.0) g/dL Meds: Medications Generic Name Dose Route Start Last Admin Trade Name Zackery PRN Reason Stop Dose Admin Sodium Chloride 10 ml 04/06/21 22:35 04/06/21 22:50 Sodium Chloride 0.9% 10 Ml Syringe FLUSH 10 ml ASDIRECTED PRN Administration Keep Vein Open Discontinued Medications Generic Name Dose Route Start Last Admin Trade Name Zackery PRN Reason Stop Dose Admin Diazepam 2.5 mg 04/06/21 22:45 04/06/21 22:57 Diazepam 10 Mg/2 Ml Syringe IVPUSH 04/06/21 22:46 2.5 mg ONETIME ONE Administration Famotidine 20 mg 04/06/21 22:36 04/06/21 22:49 Famotidine 20 Mg/2 Ml Sdv IVPUSH 04/06/21 22:37 20 mg ONETIME ONE Administration Glucagon 0.5 mg 04/06/21 22:41 04/06/21 23:01 Glucagon,Human Recombinant 1 Mg Vial IVPUSH 04/06/21 22:42 0.5 mg ONETIME ONE Administration Ondansetron HCl 4 mg 04/06/21 22:36 04/06/21 22:53 Ondansetron 4 Mg/2 Ml Sdv IVPUSH 04/06/21 22:37 4 mg ONETIME ONE Administration Pantoprazole Sodium 40 mg 04/06/21 22:35 04/06/21 22:46 Pantoprazole 40 Mg Vial IVPUSH 04/06/21 22:36 40 mg ONETIME ONE Administration - Re-Assessments/Exams Free Text/Narrative Re-Assessment/Exam: 04/06/21 22:46 Xrays/labs ordered. Will establish IV. Glucagon/Diazepam IV to see if food bolus can be relieved. Also Zofran/Pepcid/Protonix ordered. If bolus remains in place, patient has said that he refuses to drive to [place] or [facility] in order to be evaluated for endoscopy which should be able to push the food bolus through the esophageal sphincter. Call placed to [facility] but they will not have surgery available until tomorrow morning. No acute changes noted on chest films. Larger amount of stool noted within colon. CBC/Chem overall unremarkable except for mild elevation WBC/suspect secondary to stress reaction. Free Text/Narrative Re-Assessment/Exam: 04/06/21 23:57 No clearing of food impaction s/p Valium and Glucagon. from [place] cleared patient to stay here in [place] and have upper endoscopy tomorrow when our surgeon is here. Patient refused observation admission overnight and instead wants to be at home. Current plan is to contact him first thing in morning once OR crew arrives and we figure out where to fit him in to the schedule. Precautions reviewed. Importance of staying NPO if food obstruction clears reviewed. To return to ER if he has sudden worsening problems. Departure - Departure Time of Disposition: 23:52 Disposition: Home, Self-Care 01 Condition: Fair Clinical Impression: Esophageal obstruction due to food impaction - Discharge Information *PRESCRIPTION DRUG MONITORING PROGRAM REVIEWED*: Not Applicable *COPY OF PRESCRIPTION DRUG MONITORING REPORT IN PATIENT DENIS: Not Applicable Instructions: Esophageal Stricture Referrals: Darin Davila MD [Primary Care Provider] - Forms: ED Department Discharge Additional Instructions: We will call you with an OR time tomorrow morning once the OR crew gets in and we can notify them of your needing to be placed on the schedule. Even if the food becomes unstuck you will still need the endoscopy so that any stricture can be fixed and they can look around for any other reason that might be contributing to the problem such as a mass of some sort. Usually all you need i s to get the area dilated so food can pass again. Don't try to eat anything else! We want your stomach empty before the procedure. That includes Diet Coke. Follow up otherwise as needed if you have any sudden difficulties. Sepsis Event Note (ED) - Evaluation Sepsis Screening Result: No Definite Risk - Focused Exam Vital Signs: Vital Signs Temp Pulse Resp BP BP Pulse Ox 04/06/21 23:08 36.9 C 96 164/89 H 04/06/21 21:34 37.5 C 96 20 186/92 H 98 - My Orders Last 24 Hours: My Active Orders 04/06/21 21:39 Abdomen Series w Chest 1V [CR] Stat 04/06/21 22:35 Peripheral IV Care [RC] . DIRECTED Sodium Chloride 0.9% [Saline Flush] 10 ml FLUSH ASDIRECTED PRN Peripheral IV Insertion Adult [OM.PC] Routine - Assessment/Plan Last 24 Hours: My Active Orders 04/06/21 21:39 Abdomen Series w Chest 1V [CR] Stat 04/06/21 22:35 Peripheral IV Care [RC] . DIRECTED Sodium Chloride 0.9% [Saline Flush] 10 ml FLUSH ASDIRECTED PRN Peripheral IV Insertion Adult [OM.PC] Routine
[2021-04-06] MEDS: Pantoprazole 40 MG Vial IVPUSH ONE (22:46)
[2021-04-06] MEDS: Famotidine 20 MG/2 ML SDV IVPUSH ONE (22:49)
[2021-04-06] MEDS: Sodium Chloride 0.9% 10 ML Syringe FLUSH PRN (22:50)
[2021-04-06 22:52] LABS: CHLORIDE,CL 103 mmol/L (98-107); SODIUM,NA 141 mmol/L (136-145)
[2021-04-06] MEDS: Ondansetron 4 MG/2 ML SDV IVPUSH ONE (22:53)
[2021-04-06] MEDS: Glucagon,Human Recombinant 1 MG Vial IVPUSH ONE (23:01)
== END 2021-04-07 00:08 | disposition home or self-care (01) ==
LOC: LL.ED 21:30
DX: T18.128A Food in esophagus causing other injury, initial encounter (principal); I10 Essential (primary) hypertension; J44.9 Chronic obstructive pulmonary disease, unspecified; Z72.0 Tobacco use; Z79.899 Other long term (current) drug therapy
CPT/HCPCS: 36415; 74022; 80053; 85025; 96374; 96375; 99284; C9113; J1610; J2405; J3360; J3490

== ENCOUNTER → 2021-04-07 | Day surgery (SDC) | payer MEDICARE, OTHER ==
[~2021-04-07] MED LIST: Glycopyrrolate 0.2 MG/ML SDV ONE; Lactated Ringers 1,000 ML IV SCH; Lidocaine 2% 5 ML SDV ONE; Midazolam 1 MG/ML 2 ML SDV ONE; Propofol 200 MG/20 ML SDV ONE; Sodium Chloride 0.9% 10 ML Syringe FLUSH PRN
--- NOTE | 2021-04-07 10:32 | PCM.PN ---
- General Info Date of Service: 04/07/21 - Review of Systems Systems Review Comment:: 70-year-old male referred for EGD. He has a recent history of dysphagia on multiple occasions. He sometimes feels as if food sticks in the lower part of his esophagus and then he is unable to even swallow his saliva temporarily. He is medically stable to proceed today. I have discussed the proposed EGD with the patient. Risks such as but not limited to bleeding and GI injury reviewed. He agrees to proceed. - Patient Data Vitals - Most Recent: Last Vital Signs Temp 98.7 F 04/07/21 09:51 Pulse 87 04/07/21 09:51 Resp 16 04/07/21 09:51 BP 134/82 04/07/21 09:51 Pulse Ox 95 04/07/21 09:51 Weight - Most Recent: 78.471 kg Med Orders - Current: Current Medications Lactated Ringer's (Ringers, Lactated) 1,000 mls @ 125 mls/hr IV ASDIRECTED KEN Last Admin: 04/07/21 10:02 Dose: 125 mls/hr Documented by: Sodium Chloride (Sodium Chloride 0.9% 10 Ml Syringe) 10 ml FLUSH ASDIRECTED PRN PRN Reason: Keep Vein Open Discontinued Medications Midazolam HCl (Midazolam 1 Mg/Ml 2 Ml Sdv) Confirm Administered Dose 2 mg .ROUTE .STK-MED ONE Stop: 04/07/21 10:27 Propofol (Propofol 200 Mg/20 Ml Sdv) Confirm Administered Dose 200 mg .ROUTE .STK-MED ONE Stop: 04/07/21 08:31 Sepsis Event Note - Focused Exam Vital Signs: Vital Signs Temp Pulse Resp BP Pulse Ox 04/07/21 09:51 98.7 F 87 16 134/82 95 - Problem List Review Problem List Initiated/Reviewed/Updated: Yes - My Orders Last 24 Hours: My Active Orders 04/07/21 09:30 Patient Status [ADT] Routine Peripheral IV Care [RC] . DIRECTED Verify Patient Consent Obtain [RC] ASDIRECTED Lactated Ringers [Ringers, Lactated] 1,000 ml IV ASDIRECTED Sodium Chloride 0.9% [Saline Flush] 10 ml FLUSH ASDIRECTED PRN Peripheral IV Insertion Adult [OM.PC] Routine - Assessment Assessment:: Dysphagia - Plan Plan:: EGD
--- NOTE | 2021-04-07 11:08 | PCM.OPNOTE ---
- General Post-Op/Procedure Note Date of Surgery/Procedure: 04/07/21 Operative Procedure(s): EGD with Biopsy and Esophageal balloon dilation Findings: Moderate benign appearing stricture at GE Jct with associated inflammation suggestive of acid reflux Exam otherwise unremarkable Pre Op Diagnosis: Dysphagia Post-Op Diagnosis: Reflux esophagitis with distal esophageal stricture Anesthesia Technique: MAC Primary Surgeon: Supa Ayala Pathology: Biopsies of gastric antrum and distal esophagus EBL in mLs: 2 Complications: None Condition: Good
--- NOTE | 2021-04-07 13:24 | OR ---
Date of Procedure: 04/07/2021 PREOPERATIVE DIAGNOSIS: Dysphagia. POSTOPERATIVE DIAGNOSIS: Reflux esophagitis with esophageal stricture. OPERATION PERFORMED: Esophagogastroduodenoscopy with biopsy and balloon esophageal dilation. INDICATIONS FOR SURGERY: This 70-year-old male has recently had multiple episodes of dysphagia with food sticking in the lower part of his esophagus and then him being temporarily unable to swallow even liquids. FINDINGS: At the GE junction, the patient has visible evidence of acute inflammation with a moderate stricture. The stricture appears to be a benign intrinsic stricture and is associated with inflammation. No other mass or abnormality is seen in this area. The stomach appears normal as does the duodenum. DESCRIPTION OF PROCEDURE: The patient was taken to the operating room. He was given intravenous sedation, and with him in the left lateral decubitus position, the Olympus gastroscope was advanced through a mouth guard into the oral cavity. Under direct visualization, the scope was then carefully advanced through the oropharynx into the esophagus and then down through the esophagus past the stricture without difficulty and then on into the stomach and duodenum where examination to the fourth portion was performed. The duodenum appeared normal. The scope was withdrawn back into the stomach where full examination including retroflexed examination of the fundus was carried out. The gastric lining appeared normal. Random biopsies of the antrum were taken to rule out H. pylori. The GE junction was then carefully examined, and with the patient's symptoms and the appearance of a stricture, balloon dilation was performed. This was carried out in successive dilations up to 18 mm. There did appear to be moderate improvement of the stricture with some heme identified with the stricturing, although no evidence of esophageal injury was identified. Random biopsies of the distal esophagus were also taken. The scope was then removed and the patient was taken from the operating room in satisfactory condition. ESTIMATED BLOOD LOSS: 2 mL. COMPLICATIONS: None. PROGNOSIS: Good. SUN Ayala MD /[id number]
== END | disposition home or self-care (01) ==
LOC: LL.SDS 09:30
PROVIDERS: ATTEND Surgery
DX: K22.2 Esophageal obstruction (principal); K21.00 Gastro-esophageal reflux disease with esophagitis, without bleeding; K29.50 Unspecified chronic gastritis without bleeding; K31.89 Other diseases of stomach and duodenum; I10 Essential (primary) hypertension; E78.00 Pure hypercholesterolemia, unspecified; J44.9 Chronic obstructive pulmonary disease, unspecified; G47.30 Sleep apnea, unspecified; F17.210 Nicotine dependence, cigarettes, uncomplicated; Z86.010 Personal history of colon polyps; Z80.0 Family history of malignant neoplasm of digestive organs
CPT/HCPCS: 00731; 43239; 43249; 88305; 88342; C1726; J2250; J2704; J3490; J7120

== ENCOUNTER 2023-02-24 10:40 | Emergency (ER) | payer OTHER, MEDICARE ==
[2023-02-24 11:07] LABS: BASOPHILS ABSOLUTE AUTO 0.02 K/uL (0.00-0.20); BASOPHILS PERCENT AUTO 0.2 % (0.0-2.0); EOSINOPHILS ABSOLUTE AUTO 0.12 K/uL (0.00-0.50); HEMATOCRIT 47.9 % (39.0-49.0); HEMOGLOBIN 17.1 g/dL (13.1-16.8); LYMPHOCYTES ABSOLUTE AUTO 1.71 K/uL (0.50-3.50); LYMPHOCYTES PERCENT AUTO 14.1 % (10.0-50.0); MEAN CORPUSCULAR HEMOGLOBIN 33.6 pg (28.2-33.3); MEAN CORPUSCULAR HGB CONC 35.7 g/dL (31.7-36.0); MEAN CORPUSCULAR VOLUME 94.1 fL (84.0-98.0); MONOCYTES ABSOLUTE AUTO 1.28 K/uL (0.00-1.00); MONOCYTES PERCENT AUTO 10.5 % (2.0-14.0); NEUTROPHILS ABSOLUTE AUTO 9.03 K/uL (1.40-7.00); NEUTROPHILS PERCENT AUTO 74.2 % (45.0-80.0); PLATELET COUNT,PLT 208 K/uL (150-350); RED BLOOD CELL COUNT 5.09 M/uL (4.33-5.41); RED CELL DISTRIBUTION WIDTH 13.7 % (11.2-14.1); WHITE BLOOD CELL COUNT,WBC 12.2 K/uL (4.0-10.2)
[2023-02-24 11:27] LABS: ALBUMIN 3.4 g/dL (3.4-5.0); BILIRUBIN TOTAL 1.1 mg/dL (0.2-1.0); CALCIUM 9.4 mg/dL (8.5-10.1); CARBON DIOXIDE,CO2 27.1 mmol/L (21.0-32.0); CREATININE 0.81 mg/dL (0.51-1.17); EST CRCL DRUG DOSING (CG) 87.8 mL/min; POTASSIUM,K 3.8 mmol/L (3.5-5.1); PROTEIN TOTAL,TP 7.8 g/dL (6.4-8.2)
[2023-02-24 11:28] LABS: ANION GAP 14.7 meq/L (7-15)
[2023-02-24 11:49] LABS: CORONAVIRUS COVID-19 NAA NEGATIVE (NEGATIVE); INFLUENZA A NAA NEGATIVE (NEGATIVE); INFLUENZA B NAA NEGATIVE (NEGATIVE); RESPIRATORY SYNCYTIAL VIR NAA NEGATIVE (NEGATIVE)
[2023-02-24] MEDS: VANCOmycin 2 GM/400 ML 2 GM in Premix Bag 1 BAG IV ONE (12:42)
== END 2023-02-24 15:15 ==
LOC: LL.ED 10:40
DX: L03.115 Cellulitis of right lower limb (principal); I10 Essential (primary) hypertension; J44.9 Chronic obstructive pulmonary disease, unspecified; F17.210 Nicotine dependence, cigarettes, uncomplicated; Z20.822 Contact with and (suspected) exposure to COVID-19
CPT/HCPCS: 0241U; 36415; 73620-RT; 73700-RT; 80053; 83605; 85025; 87040; 96365; 96366; 99284; 99285-25; J3370